=== PATIENT | male | born 2000 | race Caucasian/White ===

== ENCOUNTER → 2018-09-29 | Outpatient (CLI) | payer BC ==
--- NOTE | 2018-09-29 17:34 | CT ---
EXAM DESCRIPTION: Abdomen/Pelvis w/Contrast: Computed Tomography. CLINICAL HISTORY: 18 years Male RLQ PAIN. WBC 11,000. COMPARISON: None. TECHNIQUE: Spiral-axial scans at 5 x 5 mm intervals through the abdomen and pelvis, after nonionic IV contrast and water contrast. Coronal and sagittal 2 x 2 mm reconstructions. Delayed scans, liver through the pelvis. Axial-spiral 5mm. No adverse reactions. Total Exam DLP: 572.02 mGy-cm. This exam was performed according to our departmental dose-optimization program which includes automated exposure control, adjustment of the mA and/or kV according to patient size and/or use of iterative reconstruction technique; to reduce radiation dose to as low as reasonably achievable (ALARA). FINDINGS: Lung bases and pleura: Negative. Liver, Stomach, Spleen, Adrenal Glands: Stomach slightly distended with food and water. Minimal distention of mid and distal esophagus by water. Otherwise Unremarkable. Pancreas, Gallbladder, Ducts: Gallbladder visualized. Duct is not dilated. Uniform enhancement of the pancreas not enlarged.. Kidneys and Ureters: Unremarkable. Mesentery: Difficult to evaluate due to body habitus. No free air. Aorta: Negative. Small Bowel: Contains mostly fluid/water contrast with minimal gas. Minimal distention proximally. No large air-fluid levels.. Terminal Ileum/Cecum: Not distended. Moderate fecal matter with minimal gas. Limited visualization of the appendix containing gas and fluid with no dilation or fatty stranding. Colon: Moderate fecal matter in the cecum and proximal ascending colon with distention of the hepatic flexure, transverse colon, and splenic flexure by gas. Descending colon is decompressed minimal gas and fluid in the rectosigmoid. Pelvic Organs: Minimal distention of the urinary bladder with IV contrast. Spine and Bony Pelvis: Negative. Abdominal Wall/Back Soft Tissues: Unremarkable. IMPRESSION: 1. Appendix is normal caliber with no surrounding fatty stranding. No free fluid or free air. 2. Fluid in the small bowel after patient ingesting water for contrast but no evidence of small bowel obstruction or large air-fluid levels. Also consider small bowel viral enteritis. Minimal distention of the mid and distal duodenum by fluid. Slight distention of the ascending colon, hepatic flexure, transverse colon, and splenic flexure by gas with decompression of the descending colon and sigmoid. Electronically signed by: Joss Mccann MD 09/29/2018 5:32 PM CDT
== END ==
LOC: CT 16:02
PROVIDERS: ATTEND Family Medicine
DX: R10.31 Right lower quadrant pain (principal); R11.2 Nausea with vomiting, unspecified